=== PATIENT | female | born 1980 | race Caucasian/White ===

== ENCOUNTER 2020-06-05 11:45 | Emergency (ER) | payer SELFPAY ==
[~2020-06-05] VITALS: Ht 157.5 cm; Wt 47.7 kg
[2020-06-05 12:01] VITALS: Ht 157.5 cm; Wt 47.7 kg
[2020-06-05] MEDS ORDERED: VOLTAREN75 MG PO (12:53)
[2020-06-05] MEDS ORDERED: CLEOCIN HCL300 MG PO (12:53)
[2020-06-05] MEDS ORDERED: TYLENOL W/CODEI1 TAB PO (12:54)
[2020-06-05 13:29] VITALS: BP 128/78
== END 2020-06-05 13:30 | disposition home or self-care (01) ==
LOC: D.ER 11:45
DX: K04.7 Periapical abscess without sinus (principal); K08.89 Other specified disorders of teeth and supporting structures; Z72.0 Tobacco use